=== PATIENT | male | born 1965 | race Caucasian/White ===

== ENCOUNTER 2018-01-17 12:16 | Inpatient (IN) | payer OTHER ==
[~2018-01-17] VITALS: Ht 185.4 cm; Wt 86.7 kg
[2018-01-17] MEDS ORDERED: SODIUM CHLORIDE 0.9% 1,000 ML IV ONE ×2 (12:25→13:46)
[2018-01-17] MEDS ORDERED: SODIUM CHLORIDE FLUSH 10ML SYR IVF ONE (12:30)
[2018-01-17] MEDS ORDERED: BUTA1CAP30 PO (12:54)
[2018-01-17] MEDS ORDERED: LISI-170 PO (12:54)
[2018-01-17] MEDS ORDERED: PROP1DRO6 EACHEYE (12:54)
[2018-01-17] MEDS ORDERED: QUET25TA PO (12:54)
[2018-01-17] MEDS ORDERED: AMLO10TA6 PO (12:54)
[2018-01-17] MEDS ORDERED: ACET325C5 PO (12:54)
[2018-01-17] MEDS ORDERED: CHOL100011 PO (12:54)
[2018-01-17] MEDS ORDERED: ZIPR20CA2 IM (12:54)
[2018-01-17] MEDS ORDERED: TRAM50TA2 PO (12:54)
[2018-01-17] MEDS ORDERED: HYDR100T25 PO (12:54)
[2018-01-17] MEDS ORDERED: METH10TA4 PO (12:54)
[2018-01-17 12:58] LABS: BASOPHILS # (AUTO) 0.04 x10^3/uL (0-0.1); BASOPHILS % (AUTO) 1 % (0-1); EOSINOPHILS # (AUTO) 0.33 x10^3/uL (0-0.4); EOSINOPHILS % (AUTO) 4 % (1-7); LYMPHOCYTES # (AUTO) 1.48 x10^3/uL (1-3.4); LYMPHOCYTES % (AUTO) 18 % (22-44); MD NO; MEAN CORPUSCULAR HEMOGLOBIN 32.2 pg (27.5-34.5); MEAN CORPUSCULAR HGB CONC 34.1 g/dL (33.2-36.2); MEAN CORPUSCULAR VOLUME 94.6 fL (81-97); MEAN PLATELET VOLUME 9.9 fL (7.4-10.4); MONOCYTES # (AUTO) 0.71 x10^3/uL (0.2-0.8); MONOCYTES % (AUTO) 9 % (2-9); NEUTROPHILS # (AUTO) 5.72 x10^3/uL (1.8-6.8); NEUTROPHILS % (AUTO) 69 % (42-75); PLATELET COUNT 365 x10^3/uL (130-400); RED BLOOD COUNT 4.14 x10^6/uL (4.38-5.82); RED CELL DISTRIBUTION WIDTH 13.4 % (9.4-14.8)
[2018-01-17 13:07] LABS: ALANINE AMINOTRANSFERASE 43 U/L (12-78); ALBUMIN 3.2 g/dL (3.4-5.0); ANION GAP 5 mmol/L (5-15); CALCIUM 8.4 mg/dL (8.5-10.1); CHLORIDE 105 mmol/L (98-107)
[2018-01-17 13:11] LABS: CREATININE 1.08 mg/dL (0.7-1.3)
[2018-01-17 13:12] LABS: ALKALINE PHOSPHATASE 114 U/L (45-117); BILIRUBIN,TOTAL 0.3 mg/dL (0.2-1.0); TOTAL PROTEIN 7.7 g/dL (6.4-8.2); TROPONIN I < 0.015 ng/mL (0.000-0.045)
[2018-01-17 13:25] LABS: CULTURE INDICATED? YES; MICROSCOPIC INDICATED
[2018-01-17] MEDS ORDERED: SODIUM CHLORIDE FLUSH 10ML SYR IVF PRN (14:00)
[2018-01-17] MEDS ORDERED: CEFTRIAXONE PMX 1GM/50ML 50 ML ONE (14:00)
[2018-01-17] MEDS ORDERED: CEFTRIAXONE PMX 1GM/50ML 50 ML IV ONE (14:00)
[2018-01-17] MEDS ORDERED: ONDANSETRON 2MG/ML, 2ML IVPush PRN (14:30)
[2018-01-17] MEDS ORDERED: morphine SULFATE 10 MG/ML, 1ML IVPush PRN (14:30)
[2018-01-17] MEDS ORDERED: ENALAPRILAT 1.25 MG/ML, 2ML IVPush PRN (14:30)
[2018-01-17 15:11] VITALS: BP 121/77
[2018-01-17 15:13] LABS: FREE T4 (FREE THYROXINE) 1.04 ng/dL (0.76-1.46); THYROID STIMULATING HORMONE 3.88 mIU/L (0.358-3.740)
[2018-01-17 15:20] LABS: INTERNATIONAL NORMALIZED RATIO 1.05 (0.93-1.1); PROTHROMBIN TIME 10.8 Seconds (9.6-11.5)
[2018-01-17] MEDS: SODIUM CHLORIDE 0.9% 1,000 ML IV SCH (15:26)
[2018-01-17] MEDS ORDERED: ACETAMINOPHEN 325 MG TABLET PO PRN (15:30)
[2018-01-17] MEDS ORDERED: GADOBUTROL 10 MMOL/10 ML PFS ONE (17:00)
[2018-01-17 19:00] VITALS: BP 134/91
[2018-01-17] MEDS: ASPIRIN PO SCH (20:06)
[2018-01-17] MEDS: CAFFEINE PO SCH (20:06)
[2018-01-17] MEDS: BUTALBITAL PO SCH (20:06)
[2018-01-17] MEDS: QUETIAPINE 25MG TABLET PO SCH (20:07)
[2018-01-18 01:38] VITALS: BP 128/74
[2018-01-18 04:40] LABS: BASOPHILS # (AUTO) 0.04 x10^3/uL (0-0.1); BASOPHILS % (AUTO) 1 % (0-1); EOSINOPHILS # (AUTO) 0.33 x10^3/uL (0-0.4); EOSINOPHILS % (AUTO) 5 % (1-7); LYMPHOCYTES # (AUTO) 1.46 x10^3/uL (1-3.4); LYMPHOCYTES % (AUTO) 22 % (22-44); MD NO; MEAN CORPUSCULAR HEMOGLOBIN 31.6 pg (27.5-34.5); MEAN CORPUSCULAR HGB CONC 33.5 g/dL (33.2-36.2); MEAN CORPUSCULAR VOLUME 94.2 fL (81-97); MEAN PLATELET VOLUME 9.8 fL (7.4-10.4); MONOCYTES # (AUTO) 0.61 x10^3/uL (0.2-0.8); MONOCYTES % (AUTO) 9 % (2-9); NEUTROPHILS # (AUTO) 4.09 x10^3/uL (1.8-6.8); NEUTROPHILS % (AUTO) 63 % (42-75); PLATELET COUNT 356 x10^3/uL (130-400); RED BLOOD COUNT 4.12 x10^6/uL (4.38-5.82); RED CELL DISTRIBUTION WIDTH 13.3 % (9.4-14.8)
[2018-01-18 04:45] LABS: ALANINE AMINOTRANSFERASE 37 U/L (12-78); ALBUMIN 3.2 g/dL (3.4-5.0); ANION GAP 8 mmol/L (5-15); CALCIUM 8.3 mg/dL (8.5-10.1); CHLORIDE 105 mmol/L (98-107); CREATININE 1.16 mg/dL (0.7-1.3)
[2018-01-18 04:47] LABS: ALKALINE PHOSPHATASE 112 U/L (45-117); BILIRUBIN,TOTAL 0.4 mg/dL (0.2-1.0); TOTAL PROTEIN 7.6 g/dL (6.4-8.2)
[2018-01-18] MEDS: SODIUM CHLORIDE 0.9% 1,000 ML IV SCH ×2 (04:50→17:06)
[2018-01-18 07:42] VITALS: BP 136/90
[2018-01-18] MEDS: QUETIAPINE 25MG TABLET PO SCH ×2 (08:38→20:11)
[2018-01-18] MEDS: CHOLECALCIFEROL 1,000 UNIT TABLET PO SCH (08:38)
[2018-01-18] MEDS: LISINOPRIL 20 MG TABLET PO SCH (08:38)
[2018-01-18] MEDS: AMLODIPINE 10 MG TAB PO SCH (08:38)
[2018-01-18] MEDS: ASPIRIN PO SCH ×2 (08:46→20:11)
[2018-01-18] MEDS: BUTALBITAL PO SCH ×2 (08:46→20:11)
[2018-01-18] MEDS: CAFFEINE PO SCH ×2 (08:46→20:11)
[2018-01-18 13:55] VITALS: BP 149/80
[2018-01-18] MEDS ORDERED: CEFTRIAXONE PMX 1GM/50ML 50 ML IV SCH (14:00)
[2018-01-18 19:07] VITALS: BP 140/92
[2018-01-19 00:56] VITALS: BP 137/91
[2018-01-19] MEDS: BUTALBITAL PO SCH ×2 (08:18→20:19)
[2018-01-19] MEDS: CHOLECALCIFEROL 1,000 UNIT TABLET PO SCH (08:18)
[2018-01-19] MEDS: ASPIRIN PO SCH ×2 (08:18→20:19)
[2018-01-19] MEDS: AMLODIPINE 10 MG TAB PO SCH (08:18)
[2018-01-19] MEDS: CAFFEINE PO SCH ×2 (08:18→20:19)
[2018-01-19] MEDS: LISINOPRIL 20 MG TABLET PO SCH (08:18)
[2018-01-19] MEDS: QUETIAPINE 25MG TABLET PO SCH ×2 (08:18→20:18)
[2018-01-19 09:55] VITALS: BP 123/76
[2018-01-19] MEDS: SULFAMETH./TRIMETHOPRIM DS 800MG/160MG TABLET PO SCH ×2 (12:23→20:18)
[2018-01-19 13:37] VITALS: BP 121/78
[2018-01-19 15:10] VITALS: BP 119/81
[2018-01-19 16:20] VITALS: BP 132/86
[2018-01-19] MEDS: SODIUM CHLORIDE 0.9% 1,000 ML IV SCH (17:00)
[2018-01-19] MEDS ORDERED: SODIUM CHLORIDE 0.9%, 500ML IVBOLUS ONE (17:00)
[2018-01-19 17:08] LABS: BASOPHILS # (AUTO) 0.04 x10^3/uL (0-0.1); BASOPHILS % (AUTO) 1 % (0-1); EOSINOPHILS # (AUTO) 0.28 x10^3/uL (0-0.4); EOSINOPHILS % (AUTO) 5 % (1-7); LYMPHOCYTES # (AUTO) 1.48 x10^3/uL (1-3.4); LYMPHOCYTES % (AUTO) 24 % (22-44); MD NO; MEAN CORPUSCULAR HEMOGLOBIN 31.9 pg (27.5-34.5); MEAN CORPUSCULAR HGB CONC 33.7 g/dL (33.2-36.2); MEAN CORPUSCULAR VOLUME 94.8 fL (81-97); MEAN PLATELET VOLUME 9.7 fL (7.4-10.4); MONOCYTES # (AUTO) 0.65 x10^3/uL (0.2-0.8); MONOCYTES % (AUTO) 10 % (2-9); NEUTROPHILS # (AUTO) 3.81 x10^3/uL (1.8-6.8); NEUTROPHILS % (AUTO) 61 % (42-75); PLATELET COUNT 325 x10^3/uL (130-400); RED BLOOD COUNT 4.11 x10^6/uL (4.38-5.82); RED CELL DISTRIBUTION WIDTH 13.3 % (9.4-14.8)
[2018-01-19 17:18] LABS: ANION GAP 10 mmol/L (5-15); CALCIUM 8.4 mg/dL (8.5-10.1); CHLORIDE 106 mmol/L (98-107); CREATININE 1.11 mg/dL (0.7-1.3)
[2018-01-19] MEDS: D5%-0.9% NACL 1,000 ML IV SCH (17:57)
[2018-01-19 18:56] VITALS: BP 131/84
[2018-01-20] MEDS: SODIUM CHLORIDE 0.9% 1,000 ML IV SCH (01:00)
[2018-01-20 01:48] VITALS: BP 161/90
[2018-01-20] MEDS: D5%-0.9% NACL 1,000 ML IV SCH (05:59)
[2018-01-20 08:13] VITALS: BP 128/80
[2018-01-20] MEDS: SULFAMETH./TRIMETHOPRIM DS 800MG/160MG TABLET PO SCH (08:44)
[2018-01-20] MEDS: CHOLECALCIFEROL 1,000 UNIT TABLET PO SCH (08:45)
[2018-01-20] MEDS: BUTALBITAL PO SCH (08:45)
[2018-01-20] MEDS: CAFFEINE PO SCH (08:45)
[2018-01-20] MEDS: ASPIRIN PO SCH (08:45)
[2018-01-20] MEDS: LISINOPRIL 20 MG TABLET PO SCH (08:45)
[2018-01-20] MEDS: QUETIAPINE 25MG TABLET PO SCH (08:45)
[2018-01-20] MEDS: AMLODIPINE 10 MG TAB PO SCH (08:45)
[2018-01-20] MEDS ORDERED: SULF-169 PO (11:02)
== END 2018-01-20 13:10 | DRG 690 ==
LOC: ED 12:40 → EDIP 13:46 → 4WST 15:03
PROVIDERS: ADMIT Hospitalist; ATTEND Hospitalist
PROC: 0T9B70Z Drainage of Bladder with Drainage Device, Via Natural or Artificial Opening (ICD-10-PCS; principal; 2018-01-17)
DX: N30.90 Cystitis, unspecified without hematuria (principal); E44.1 Mild protein-calorie malnutrition; I50.30 Unspecified diastolic (congestive) heart failure; I11.0 Hypertensive heart disease with heart failure; D64.9 Anemia, unspecified; Z66 Do not resuscitate; R13.10 Dysphagia, unspecified; B96.20 Unspecified Escherichia coli [E. coli] as the cause of diseases classified elsewhere; Z86.73 Personal history of transient ischemic attack (TIA), and cerebral infarction without residual deficits; Z74.01 Bed confinement status; Z68.25 Body mass index [BMI] 25.0-25.9, adult; Z91.041 Radiographic dye allergy status
CPT/HCPCS: 36415; 51701; 99285; J7042; 70450; 70553; 71045; 80048; 80053; 81001; 82607; 82962; 83605; 83735; 84100; 84439; 84443; 84484; 85025; 85610; 85730; 87040; 87077; 87086; 87186; 93005; 96365; A9585; G0378; J0696; J7030; J7040; P9612